=== PATIENT | female | born 1950 | race Caucasian/White ===

== ENCOUNTER → 2016-04-06 | Outpatient (CLI) | payer OTHER, MEDICARE ==
[~2016-04-06] MED LIST: ESTRADIOL 1 MG PO; SYN125 PO
[2016-04-06 12:30] LABS: BASO % 0.3 %; BASO ABS # 0.02 K/uL (0-0.2); COMPLETE YES; IG% 0.2 %; LYMPH % 23.8 %; LYMPH ABS # 1.48 K/uL (1.2-3.4); MEAN CELL VOLUME 90.2 fL (80-100); MEAN CORPUSCULAR HEMOGLOBIN 30.6 pg (25-34); MEAN CORPUSCULAR HGB CONC 33.9 g/dl (32-36); MONO % 5.5 %; NEUT % 67.2 %; PLATELET COUNT 256 K/uL (130-400); WHITE BLOOD COUNT 6.23 K/uL (4.8-10.8)
[2016-04-06 12:41] LABS: BLOOD UREA NITROGEN 12 mg/dl (7-18); BUN/CREATININE RATIO 14.8 (10-20); CALCIUM 9.2 mg/dl (8.5-10.1); CARBON DIOXIDE 27 mmol/L (21-32); CHLORIDE 105 mmol/L (98-107); CHOLESTEROL 231 mg/dl (0-200); CREATININE 0.81 mg/dl (0.60-1.20); GLUCOSE 130 mg/dl (70-99); POTASSIUM 4.1 mmol/L (3.5-5.1); SODIUM 142 mmol/L (136-145); TRIGLYCERIDES 185 mg/dl (0-150); VERY LOW DENSITY LIPOPROT CALC 37 mg/dl
[2016-04-06 12:51] LABS: CHOLESTEROL/HDL RATIO 4.6; HDL CHOLESTEROL 50 mg/dl; LDL CHOLESTEROL CALCULATED 144 mg/dl; THYROID STIMULATING HORMONE 0.046 uIu/ml (0.300-4.500)
[2016-04-06 13:08] LABS: ESTIMATED AVERAGE GLUCOSE 108 mg/dl; HA1C FLAG Normal (Normal)
[2016-04-06 13:37] LABS: URINE APPEARANCE TURBID (CLEAR); URINE BILIRUBIN NEG (NEG); URINE COLOR YELLOW; URINE EPITHELIAL CELL AUTO >30 /lpf (0-5); URINE NITRITE NEG (NEG); URINE SPECIFIC GRAVITY 1.017 (1.000-1.030); UROBILINOGEN NEG (NEG)
[2016-04-06 13:53] LABS: MANUAL MICROSCOPIC REQUIRED? NO; REVIEW REQ? NO
== END | disposition home or self-care (01) ==
LOC: C.LAB1850 10:30
PROVIDERS: ATTEND Internal Medicine
DX: E03.9 Hypothyroidism, unspecified (principal); R73.9 Hyperglycemia, unspecified

== ENCOUNTER → 2016-04-13 | Outpatient (CLI) | payer OTHER, MEDICARE ==
[2016-04-13 11:47] LABS: URINE APPEARANCE CLEAR (CLEAR); URINE BILIRUBIN NEG (NEG); URINE COLOR YELLOW; URINE NITRITE NEG (NEG); URINE SPECIFIC GRAVITY 1.017 (1.000-1.030); UROBILINOGEN NEG (NEG)
[2016-04-13 11:50] LABS: MANUAL MICROSCOPIC REQUIRED? NO; REVIEW REQ? NO
== END | disposition home or self-care (01) ==
LOC: C.LAB1850 10:59
PROVIDERS: ATTEND Internal Medicine
DX: N39.0 Urinary tract infection, site not specified (principal)

== ENCOUNTER → 2016-04-24 | Outpatient (CLI) | payer OTHER, MEDICARE | END | disposition home or self-care (01) | LOC: C.PAPS 09:35 | PROVIDERS: ATTEND Obstetrics & Gynecology | DX: Z12.4 Encounter for screening for malignant neoplasm of cervix (principal); Z78.0 Asymptomatic menopausal state ==

== ENCOUNTER → 2016-08-20 | Outpatient (CLI) | payer OTHER, MEDICARE ==
[2016-08-20 12:45] LABS: URINE APPEARANCE CLOUDY (CLEAR); URINE BILIRUBIN NEG (NEG); URINE COLOR DK YELLOW; URINE EPITHELIAL CELL AUTO >30 /lpf (0-5); URINE NITRITE NEG (NEG); URINE SPECIFIC GRAVITY 1.025 (1.000-1.030); UROBILINOGEN NEG (NEG)
[2016-08-20 12:55] LABS: MANUAL MICROSCOPIC REQUIRED? NO; REVIEW REQ? NO
== END | disposition home or self-care (01) ==
LOC: C.LAB1850 10:18
PROVIDERS: ATTEND Obstetrics & Gynecology
DX: R39.9 Unspecified symptoms and signs involving the genitourinary system (principal)

== ENCOUNTER → 2016-09-21 | Outpatient (CLI) | payer OTHER, MEDICARE | END | disposition home or self-care (01) | LOC: C.LABSPEC 11:26 | PROVIDERS: ATTEND Physician Assistant | DX: L29.8 Other pruritus (principal) ==

== ENCOUNTER → 2017-06-07 | Day surgery (SDC) | payer OTHER, MEDICARE ==
[2017-05-27 10:56] VITALS: Ht 177.2 cm
[~2017-06-07] VITALS: Ht 177.2 cm
[~2017-06-07] MED LIST changes: +AMOX500C3 PO; +ASPI-435 PO; +BUTA30CA12 PO; +CRAN200C PO; +EST1 PO; -ESTRADIOL 1 MG PO; +LEVO112T2 PO; +LIDOCAINE HCL 2% 2 ML VIAL (20MG/ML) ONE; +LIOT5TAB9 PO; +LNX125 PO; +MULT-506 PO; +PROPOFOL IV EMULSION 10 MG/ML 20 ML VIAL IV ONE; +SODIUM CHLORIDE 0.9% 500ML 500 ML IV ONE; -SYN125 PO; +[UNRECOGNIZED DRUG - CODE] SC
--- NOTE | 2017-06-07 08:41 | Endo History and Physical ---
History & Physical Date of Service: Jun 07, 2017. Chief Complaint: Family history of Colon Cancer (father) Referring Physician: Dr. Tamayo History of Present Illness 66 yo CF who presents for Colonoscopy secondary to family history of colon cancer. Past Surgical History Hx Cardiac Surgery: No Hx Internal Defibrillator: No Hx Pacemaker: No Hx Abdominal Surgery: Yes (FULL HYSTER, CYSTECTOMY FROM OVARY, LAPAROSCOPIES) Hx of Implantable Prosthesis: No Hx Post-Op Nausea and Vomiting: No Hx Cancer Surgery: No Hx Thoracic Surgery: No Hx Orthopedic: No Hx Urinary Tract Surgery: Yes (LITHOTRIPSY) Family History Colon CA, IBD Social History Smoking Status: Former Smoker Hx Substance Use: No Hx Alcohol Use: Yes (SELDEM) Allergies Coded Allergies: Ibuprofen (Verified Allergy, Intermediate, HIVES, 05/27/17) Amoxicillin (Verified Allergy, Unknown, N/V, 05/27/17) Cefaclor (Verified Allergy, Unknown, ANAPHYLAXIS, 05/27/17) Clavulanic Acid (Verified Allergy, Unknown, N/V, 05/27/17) Dust (Verified Allergy, Unknown, ., 05/27/17) Grass (Verified Allergy, Unknown, ., 05/27/17) Molds and Smuts (Verified Allergy, Unknown, ., 05/27/17) Nitrofurantoin (Verified Allergy, Unknown, N/V, 05/27/17) Prochlorperazine (Verified Allergy, Unknown, TONGUE SWELLING, 05/27/17) [place] (Verified Allergy, Unknown, SORES ON TONGUE, 05/27/17) Uncoded Allergies: CHEAP JEWELRY (Allergy, Unknown, EAR INFECTIONS WITH CHEAP JEWELRY, 05/27/17 ) Current Medications Reported Home Medications Medications Dose Route/Sig Max Daily Dose Days Date Category Genotropin [place] (Somatropin) 0.2 Mg Inj 1 Dose SC DAILY 05/27/17 Reported Amoxil (Amoxicillin) 500 Mg Cap 4 Cap PO UD PRN 05/27/17 Reported Fiorinal/Codeine #3 (Bkkhsgqado-Xlobkmo-Btylmawq W/) 1 Cap Cap 1 Cap PO UD PRN 05/27/17 Reported Cranberry Extract (Cranberry (Vaccinium Macrocarp) 200 Mg Cap 1 Cap PO BID 05/27/17 Reported Multivitamin (Multivitamins) Tab 1 Tab PO DAILY 05/27/17 Reported Aspirin 81 (Aspirin) 81 Mg Tab 1 Tab PO QPM 05/27/17 Reported Liothyronine Sodium 5 Mcg Tab 1 Tab PO QAM 05/27/17 Reported Digoxin 0.125 Mg Tab 1 Tab PO QPM 05/27/17 Reported Estradiol 1 Mg Tab 1 Tab PO QPM 05/27/17 Reported Synthroid (Levothyroxine Sodium) 112 Mcg Tab 112 Mcg PO QAM 05/27/17 Reported Vital Signs Weight (Kilograms): 0 Height (Feet): 5 Height (Inches): 9.75 Date Time Temp Pulse Resp B/P (MAP) Pulse Ox O2 Delivery O2 Flow Rate FiO2 06/07/17 08:24 36.5 84 18 140/80 (100) 95 Room Air Physical Exam General Appearance: WD/WN, no apparent distress Respiratory/Chest: Auscultation: breath sounds normal Cardiovascular: Heart Auscultation: RRR Abdomen: Bowel Sounds: normal Inspection & Palpation: soft, non-distended, no tenderness, guarding & rebound Assessment and Plan Assessment: 66 yo CF who presents for Colonoscopy secondary to family history of colon cancer. Plan: Proceed with colonoscopy.
--- NOTE | 2017-06-07 09:10 | GI REPORT ---
Procedure Date: 06/07/2017 8:14 AM Procedure: Colonoscopy Indications: Family history of colon cancer in a first-degree relative Medicines: Monitored Anesthesia Care Complications: No immediate complications. Estimated Blood Loss: Estimated blood loss: none. Procedure: Pre-Anesthesia Assessment: - Prior to the procedure, a History and Physical was performed, and patient medications and allergies were reviewed. The patient's tolerance of previous anesthesia was also reviewed. The risks and benefits of the procedure and the sedation options and risks were discussed with the patient. All questions were answered, and informed consent was obtained. Prior Anticoagulants: The patient has taken aspirin, last dose was 3 days prior to procedure. ASA Grade Assessment: III - A patient with severe systemic disease. After reviewing the risks and benefits, the patient was deemed in satisfactory condition to undergo the procedure. After I obtained informed consent, the scope was passed under direct vision. Throughout the procedure, the patient's blood pressure, pulse, and oxygen saturations were monitored continuously. The scope was introduced through the anus and advanced to the terminal ileum. The colonoscopy was performed without difficulty. The patient tolerated the procedure well. The quality of the bowel preparation was good. The terminal ileum, ileocecal valve, appendiceal orifice, and rectum were photographed. Findings: The perianal and digital rectal examinations were normal. Non-bleeding internal hemorrhoids were found during retroflexion. The hemorrhoids were small. The exam was otherwise without abnormality. Impression: - Non-bleeding internal hemorrhoids. - The examination was otherwise normal. - No specimens collected. Recommendation: - Resume previous diet. - Continue present medications. - Repeat colonoscopy in 5 years for surveillance. - Return to primary care physician as previously scheduled. Mikel Sears, DO 06/07/2017 9:10:14 AM This report has been signed electronically. Note Initiated On: 06/07/2017 8:14 AM I attest to the content of the Intraoperative Record and orders documented therein, exceptions below
--- NOTE | 2017-06-07 09:11 | Discharge Instructions ---
Endoscopy Patient Instructions Date / Procedure(s) Performed Jun 07, 2017. Colonoscopy Allergy Information Coded Allergies: Ibuprofen (Verified Allergy, Intermediate, HIVES, 05/27/17) Amoxicillin (Verified Allergy, Unknown, N/V, 05/27/17) Cefaclor (Verified Allergy, Unknown, ANAPHYLAXIS, 05/27/17) Clavulanic Acid (Verified Allergy, Unknown, N/V, 05/27/17) Dust (Verified Allergy, Unknown, ., 05/27/17) Grass (Verified Allergy, Unknown, ., 05/27/17) Molds and Smuts (Verified Allergy, Unknown, ., 05/27/17) Nitrofurantoin (Verified Allergy, Unknown, N/V, 05/27/17) Prochlorperazine (Verified Allergy, Unknown, TONGUE SWELLING, 05/27/17) [place] (Verified Allergy, Unknown, SORES ON TONGUE, 05/27/17) Uncoded Allergies: CHEAP JEWELRY (Allergy, Unknown, EAR INFECTIONS WITH CHEAP JEWELRY, 05/27/17 ) Discharge Date / Findings Jun 07, 2017. Internal hemorrhoids Medication Instructions Stopped Medication(s): Last 81mg Aspirin on 06/04/17 Last Furinol w/325mg Aspirin on 06/05/17 OK to resume all medications today as prescribed Reported Home Medications Medications Dose Route/Sig Max Daily Dose Days Date Category Genotropin [place] (Somatropin) 0.2 Mg Inj 1 Dose SC DAILY 05/27/17 Reported Amoxil (Amoxicillin) 500 Mg Cap 4 Cap PO UD PRN 05/27/17 Reported Fiorinal/Codeine #3 (Zlfrmfyhec-Hahzkjm-Vxaewoik W/) 1 Cap Cap 1 Cap PO UD PRN 05/27/17 Reported Cranberry Extract (Cranberry (Vaccinium Macrocarp) 200 Mg Cap 1 Cap PO BID 05/27/17 Reported Multivitamin (Multivitamins) Tab 1 Tab PO DAILY 05/27/17 Reported Aspirin 81 (Aspirin) 81 Mg Tab 1 Tab PO QPM 05/27/17 Reported Liothyronine Sodium 5 Mcg Tab 1 Tab PO QAM 05/27/17 Reported Digoxin 0.125 Mg Tab 1 Tab PO QPM 05/27/17 Reported Estradiol 1 Mg Tab 1 Tab PO QPM 05/27/17 Reported Synthroid (Levothyroxine Sodium) 112 Mcg Tab 112 Mcg PO QAM 05/27/17 Reported Provider Instructions Activity Restrictions - No exercising or heavy lifting for 24 hours. - Do not drink alcohol the day of the procedure. - Do not drive a car or operate machinery until the day after the procedure. - Do not make any important decisions or sign important papers in 24 hours after the procedure. Following Day: - Return to full activity which may include returning to work/school. Diet Start your diet with liquids and light foods (jello, soup, juice, toast). Then eat your usual diet if not nauseated. Treatment For Common After Affects For mild abdominal pain, bloating, or excessive gas: - Rest - Eat lightly - Lie on right side Follow-Up Information Follow-up with Dr. Tamayo as scheduled Anesthesia Information What You Should Know You have had a procedure that required some medicine to reduce anxiety and discomfort. This treatment is called moderate sedation. After receiving the treatment, you may be sleepy, but you will be able to breathe on your own. The effects of the treatment may last for several hours. Follow these instructions along with Activity/Diet recommendations noted above: * Do NOT do anything where dizziness or clumsiness would be dangerous. * Rest quietly at home today, then you can be up and about tomorrow. * Have a responsible person stay with you the rest of today. * You may have had an I.V. today. If so, you may take the dressing off later today. Recommendations Call your doctor if: * Trouble breathing * Continuous vomiting for more than 24 hours * Temperature above 101 degrees * Severe abdominal pain or bloating * Pain not relieved by pain medicine ordered * There is increased drainage or redness from any incision * A large amount of rectal bleeding greater than 2-3 tablespoons. (If you had a polyp/s removed or have hemorrhoids, a small amount of blood - from the rectum is to be expected.) * You have any unanswered questions or concerns. IN THE EVENT OF A SERIOUS EMERGENCY, GO TO THE NEAREST EMERGENCY ROOM Your discharge instructions were prepared by provider Mikel Sears. Patient Instructions Signature Page Lolly Cummins Patient (or Guardian) Signature/Date: I have read and understand the instructions given to me by my caregivers. Caregiver/RN/Doctor Signature/Date: The above-named patient and/or guardian has received patient instructions on this date. + Original Patient Signature Page (only) stays with chart. Please make copy for patient.
[2017-06-07 09:40] VITALS: BP 131/44; PULSE 72; O2SAT 95
--- NOTE | 2017-06-07 10:08 | Anesthesiology Progress Note ---
Anesthesia Post Op Note Date & Time Jun 07, 2017 at 10:08 Vital Signs Pain Intensity: 0 Vital Signs Past 12 Hours Date Time Temp Pulse Resp B/P (MAP) Pulse Ox O2 Delivery O2 Flow Rate FiO2 06/07/17 09:40 72 20 131/44 (73) 95 Room Air 06/07/17 09:25 70 18 107/52 (70) 95 Room Air 06/07/17 09:10 68 18 101/53 (69) 95 Room Air 06/07/17 08:24 36.5 84 18 140/80 (100) 95 Room Air Notes Mental Status: alert / awake / arousable, participated in evaluation Pt Amnestic to Procedure: Yes Nausea / Vomiting: adequately controlled Pain: adequately controlled Airway Patency, RR, SpO2: stable & adequate BP & HR: stable & adequate Hydration State: stable & adequate Anesthetic Complications: no major complications apparent
== END | disposition home or self-care (01) ==
LOC: C.GI 07:46
PROVIDERS: ATTEND Internal Medicine
DX: Z12.11 Encounter for screening for malignant neoplasm of colon (principal); K64.8 Other hemorrhoids; I25.10 Atherosclerotic heart disease of native coronary artery without angina pectoris; I48.91 Unspecified atrial fibrillation; Z80.0 Family history of malignant neoplasm of digestive organs; Z90.710 Acquired absence of both cervix and uterus; Z88.1 Allergy status to other antibiotic agents; Z91.018 Allergy to other foods; Z88.6 Allergy status to analgesic agent; Z79.899 Other long term (current) drug therapy; Z79.82 Long term (current) use of aspirin; Z87.891 Personal history of nicotine dependence

== ENCOUNTER → 2017-06-21 | Outpatient (CLI) | payer OTHER, MEDICARE ==
[~2017-06-21] MED LIST changes: -LIDOCAINE HCL 2% 2 ML VIAL (20MG/ML) ONE; -PROPOFOL IV EMULSION 10 MG/ML 20 ML VIAL IV ONE; -SODIUM CHLORIDE 0.9% 500ML 500 ML IV ONE
[2017-06-21 12:23] LABS: BASO % 0.6 %; BASO ABS # 0.03 K/uL (0-0.2); EOS % 3.8 %; HEMATOCRIT 46.2 % (37-47); HEMOGLOBIN 15.5 g/dL (12.0-16.0); LYMPH % 26.3 %; LYMPH ABS # 1.38 K/uL (1.2-3.4); MEAN CELL VOLUME 90.6 fL (80-100); MEAN CORPUSCULAR HEMOGLOBIN 30.4 pg (25-34); MEAN CORPUSCULAR HGB CONC 33.5 g/dl (32-36); MEAN PLATELET VOLUME 10.1 fL (7.4-10.4); MONO % 6.3 %; MONO ABS # 0.33 K/uL (0.11-0.59); NEUT ABS # 3.31 K/uL (1.4-6.5); PLATELET COUNT 243 K/uL (130-400); RED CELL DISTRIBUTION WIDTH CV 12.5 % (11.5-14.5); RED CELL DISTRIBUTION WIDTH SD 41.7 fL (36.4-46.3); WHITE BLOOD COUNT 5.25 K/uL (4.8-10.8)
[2017-06-21 12:37] LABS: BLOOD UREA NITROGEN 14 mg/dl (7-18); CARBON DIOXIDE 28 mmol/L (21-32); GLUCOSE 114 mg/dl (70-99); POTASSIUM 4.4 mmol/L (3.5-5.1); SODIUM 138 mmol/L (136-145)
[2017-06-21 12:38] LABS: CALCIUM 8.9 mg/dl (8.5-10.1); CHOLESTEROL 194 mg/dl (0-200)
[2017-06-21 12:40] LABS: HEMOGLOBIN A1C 5.7 % (4.5-5.6); LDL CHOLESTEROL CALCULATED 113 mg/dl
== END | disposition home or self-care (01) ==
LOC: C.LAB1850 10:57
PROVIDERS: ATTEND Internal Medicine
DX: R39.9 Unspecified symptoms and signs involving the genitourinary system (principal); E03.9 Hypothyroidism, unspecified